=== PATIENT | male | born 2005 | race Caucasian/White ===

== ENCOUNTER 2023-02-13 02:57 | Emergency (ER) | payer OTHER ==
[~2023-02-13] VITALS: Ht 185.4 cm; Wt 61.7 kg
== END 2023-02-13 06:36 | disposition home or self-care (01) ==
LOC: ED 02:57
DX: M54.50 Low back pain, unspecified (principal); M62.830 Muscle spasm of back

== ENCOUNTER 2023-03-19 03:26 | Emergency (ER) | payer OTHER ==
[~2023-03-19] VITALS: Ht 182.8 cm; Wt 61.7 kg
[2023-03-19] MEDS ORDERED: PREDNISONE20 M1 PO (04:44)
== END 2023-03-19 04:48 | disposition home or self-care (01) ==
LOC: ED 03:26
DX: L25.9 Unspecified contact dermatitis, unspecified cause (principal); Z20.822 Contact with and (suspected) exposure to COVID-19; B34.9 Viral infection, unspecified; F17.200 Nicotine dependence, unspecified, uncomplicated

== ENCOUNTER 2023-07-23 11:26 | Emergency (ER) | payer OTHER ==
[~2023-07-23] VITALS: Ht 185.4 cm; Wt 59.0 kg
[~2023-07-23 11:26] MED LIST: PREDNISONE20 M1 PO
== END 2023-07-23 13:35 | disposition home or self-care (01) ==
LOC: ED 11:26
DX: S70.02XA Contusion of left hip, initial encounter (principal); V29.99XA Rider (driver) (passenger) of other motorcycle injured in unspecified traffic accident, initial encounter; Y93.I9 Activity, other involving external motion; Y92.488 Other paved roadways as the place of occurrence of the external cause; Y99.8 Other external cause status